=== PATIENT | female | born 1970 | race Caucasian/White ===

== ENCOUNTER 2016-08-08 04:19 | Emergency (ER) | payer OTHER ==
[2016-08-08] MEDS ORDERED: HYDROCHLOROTHIAZIDE 25 MG TABLET ONE (04:44)
[2016-08-08] MEDS ORDERED: LISINOPRIL 10 MG TABLET ONE (04:44)
[2016-08-08] MEDS ORDERED: PREDNISONE 20 MG TABLET ONE (04:44)
--- NOTE | 2016-08-08 07:51 | RAD ---
08/08/2016 7:45 AM CHEST - 2 VIEWS History: Sudden onset shortness of breath around 0300 hours. Improvement with albuterol treatment. Comparison: 06/03/2013 Findings: Two views of the chest are obtained. The lungs are clear with out effusion or pneumothorax. The cardiomediastinal silhouette is unremarkable.. The osseous structures are intact.. IMPRESSION: No acute intrathoracic process.
== END 2016-08-08 05:50 | disposition home or self-care (01) ==
LOC: ED 04:19
DX: J45.909 Unspecified asthma, uncomplicated (principal); I10 Essential (primary) hypertension; F17.210 Nicotine dependence, cigarettes, uncomplicated